=== PATIENT | female | born 1960 | race Caucasian/White ===

== ENCOUNTER 2018-01-12 21:25 | Emergency (ER) | payer OTHER ==
[2018-01-12] MEDS ORDERED: MECLIZINE HCL 25 MG TABLET (FP) PO ONE (21:30)
[2018-01-12] MEDS ORDERED: ONDANSETRON 4 MG/2 ML VIAL IVPUSH ONE (21:32)
--- NOTE | 2018-01-12 21:38 | PDOC ---
Attending Attestation - HPI HPI: 01/12/18 22:16 The patient is a 57 year old female, with a significant past medical history of PE (x5) bipolar disorder and head/neck masses, who presents to the emergency department with, vertigo and worsening head/neck pain. As per patient, she has follow up next week for her masses, however, does endorse missing multiple appointments with her surgeon. Allergies: Aspirin, IV and Oral dye - Physicial Exam PE: 01/12/18 22:25 GENERAL: Awake, alert, and fully oriented, in no acute distress HEAD: No signs of trauma EYES: PERRLA, EOMI, sclera anicteric, conjunctiva clear +ENT: Geographic tongue. Auricles normal inspection, hearing grossly normal, nares patent, oropharynx clear without exudates. Moist mucosa +NECK: 3 enlarged lymph nodes at angle of the right jaw, 2 inches inferior, and 2 inches inferior at the clavicle. LUNGS: Breath sounds equal, clear to auscultation bilaterally. No wheezes, and no crackles HEART: Regular rate and rhythm, normal S1 and S2, no murmurs, rubs or gallops ABDOMEN: Soft, nontender, normoactive bowel sounds. No guarding, no rebound. No masses EXTREMITIES: Normal range of motion, no edema. No clubbing or cyanosis. No cords, erythema, or tenderness NEUROLOGICAL: Cranial nerves II through XII grossly intact. Normal speech, normal gait SKIN: Warm, Dry, normal turgor, no rashes or lesions noted. <Melissa Juarez - Last Filed: 01/12/18 22:25> - Resident Resident Name: Terrell Howell - ED Attending Attestation I have performed the following: I have examined & evaluated the patient, The case was reviewed & discussed with the resident, I agree w/resident's findings & plan - Medical Decision Making 01/12/18 21:51 Pt with worsening head and neck pain as well as new vertiginous symptoms. She has had a hx of multiple biopsies of the nodes/masses done at [facility] with Dr. Mac. Pt admits that she missed a bunch of appointments with Dr. Mac, due to the fact that she is homeless after her mom's . She has had a hard time getting to appts. She tells me that she is also bipolar. SHe tried medical marijuana and it didn't help. Pt has a hx of PE's states that she is "on xarelto for life" She never used OCPs and she was a heavy smoker. Pt also had biopsies of her tongue, left side of tongue biopsies were normal, right side of tongue biospsies were abnormal; her docs are worried about tongue malignancies. 01/12/18 22:15 Pt's CBC is completely normal 01/12/18 23:09 Chem is normal. Alk phos is minimally elevated. 01/12/18 23:26 Patient Name: ROSIE JULIAN THIS IS A PRELIMINARY REPORT FROM [facility] DATE OF SERVICE: 2018-01-12 22:55:20 IMAGES: 182 EXAM: HEAD CT WITHOUT CONTRAST HISTORY: Rule out new lesion COMPARISON: None. FINDINGS: The ventricular system is midline and nondilated. The sulcal pattern is normal for the patient's age. There is no bleed, mass, extra-axial fluid collection or mass effect. No skull fracture or skull lesion is identified. The visualized paranasal sinuses and mastoid air cells are clear. IMPRESSION: No evidence of pathology 01/12/18 23:26 Pt will be discharged. She has normal labs normal CT and she will be given meclizine for dizziness and tylenol for pain and she will follow with her docs at [facility]. <Lucy Merino - Last Filed: 01/12/18 23:27> Attestations - Attestations 01/12/18 22:16 Documentation prepared by Melissa Juarez, acting as medical pathologist for Lucy Merino MD. <Melissa Juarez - Last Filed: 01/12/18 22:25>
[2018-01-12] MEDS ORDERED: MECLIZINE HCL 25 MG TABLET (FP) ONE (21:47)
[2018-01-12] MEDS ORDERED: ONDANSETRON 4 MG/2 ML VIAL ONE (21:47)
--- NOTE | 2018-01-12 21:59 | PDOC ---
History of Present Illness - General Chief Complaint: Lightheaded Stated Complaint: NECK PAIN, DIZZY Time Seen by Provider: 01/12/18 21:28 History Source: Patient Exam Limitations: No Limitations - History of Present Illness Initial Comments: 01/12/18 22:01 57F with pmh of PE and COPD presenting to the ER for right jaw and neck pain as well as vertigo for the past week. Patient has been seen by ENT Dr. Mac from [facility] for possibly neoplatic processes in the patient's neck. A MRI done in August of this year showed that the patient had a [id number] on the tip of the right parotid gland, a enlarged lymph node between the right SCM muscle and parotid gland as well as enhancing lymph nodes in the cervical neck. Patient's neck is extremely tender to the right. Has an appointment with her ENT in 8 days. Claims to have missed quite a few appointments. Past History - Past Medical History Allergies/Adverse Reactions: Allergies Allergy/AdvReac Type Severity Reaction Status Date / Time aspirin Allergy Verified 10/18/17 10:03 Iodinated Contrast- Oral and Allergy Verified 10/18/17 10:03 IV Dye Home Medications: Ambulatory Orders Clonazepam 1 mg PO DAILY 10/18/17 Gabapentin 300 mg PO BID 10/18/17 Lamotrigine [Lamictal -] 100 mg PO BID 10/18/17 Venlafaxine HCl ER [Effexor Xr -] 150 mg PO DAILY 10/18/17 Meclizine HCl [Antivert -] 25 mg PO TID #21 tablet 01/12/18 Cardiac Disorders: Yes (P.E) COPD: Yes HTN: Yes Psychiatric Problems: Yes (bipolar, depression, bipolar) - Suicide/Smoking/Psychosocial Hx Smoking History: Current every day smoker Have you smoked in the past 12 months: No Number of Cigarettes Smoked Daily: 10 'Breaking Loose' booklet given: 10/18/17 Hx Alcohol Use: No Drug/Substance Use Hx: No Substance Use Type: None Review of Systems - Review of Systems Able to Perform ROS?: Yes Is the patient limited Polish proficient: No Constitutional: No: Symptoms Reported HEENTM: Yes: See HPI Respiratory: No: Symptoms reported Cardiac (ROS): No: Symptoms Reported ABD/GI: No: Symptoms Reported : No: Symptoms Reported Musculoskeletal: No: Symptoms Reported Integumentary: No: Symptoms Reported Neurological: Yes: Dizziness *Physical Exam - Physical Exam General Appearance: Yes: Nourished, Appropriately Dressed, Moderate Distress HEENT: positive: EOMI, FAITH, Normal ENT Inspection, Other Neck: positive: Tender (right), Rigid. negative: Carotid bruit Respiratory/Chest: positive: Lungs Clear, Normal Breath Sounds. negative: Chest Tender, Respiratory Distress Cardiovascular: positive: Regular Rhythm, Regular Rate, S1, S2 Gastrointestinal/Abdominal: positive: Normal Bowel Sounds, Flat, Soft. negative : Tender Musculoskeletal: positive: Normal Inspection. negative: CVA Tenderness Extremity: positive: Normal Capillary Refill, Normal Inspection, Normal Range of Motion Neurologic: positive: Fully Oriented, Alert, Normal Mood/Affect, Normal Response ED Treatment Course - LABORATORY CBC & Chemistry Diagram: 01/12/18 21:54 01/12/18 21:54 - RADIOLOGY Radiology Studies Ordered: Category Date Time Status HEAD CT WITHOUT CONTRAST [CT] Stat CT Scan 01/12/18 21:44 Ordered CHEST PA & LAT [RAD] Stat Radiology 01/12/18 21:32 Ordered Medical Decision Making - Medical Decision Making 01/12/18 22:30 Enlargement of preexisting neoplastic lesions possibly impacting vertebral supply causing vertigo? Basic labs ordered, cxr, ekg, meclizine and pain control. Spoke to ENT environmental web crawler for Dr. Mac who recommended treating the vertigo and sending the patient home as it is unlikely that any adverse event might occur during the week Unfortunately patient is allergic to iodine contrast. We will only do a dry CT to search for any sign of new pathology. 01/12/18 23:[address] Will discharge with meclizine. *DC/Admit/Observation/Transfer Diagnosis at time of Disposition: Vertigo - Discharge Dispostion Disposition: HOME Decision to Admit order: No - Prescriptions Prescriptions: Meclizine HCl [Antivert -] 25 mg PO TID #21 tablet - Referrals - Patient Instructions Printed Discharge Instructions: DI for Vertigo Additional Instructions: Please follow up with your ENT appointment next week with Dr. Morejon. supervisor mail carriers your prescription medication for your vertigo. Come back to the ER for any new, worsening or concerning symptoms. - Post Discharge Activity
[2018-01-12 22:03] VITALS: BP 133/94; PULSE 76; TEMP 98.1; BMI 26.9
[2018-01-12 22:04] LABS: EOS % 1.7 % (0-4.5); HEMATOCRIT 39.6 % (32.4-45.2); HEMOGLOBIN 13.6 GM/dL (10.7-15.3); LYMPH % 39.4 % (8-40); MCH 30.6 pg (25.7-33.7); MCHC 34.5 g/dl (32.0-36.0); MEAN CELL VOLUME 88.8 fl (80-96); MEAN PLT VOLUME 7.4 fl (7.5-11.1); MONO % 6.1 % (3.8-10.2); NEUT % 51.8 % (42.8-82.8); PLATELET COUNT 360 K/MM3 (134-434); RBC 4.46 M/mm3 (3.60-5.2); RDW 13.1 % (11.6-15.6); WHITE BLOOD COUNT 8.8 K/mm3 (4.0-10.0)
[2018-01-12 22:39] LABS: ALBUMIN 3.9 g/dl (3.4-5.0); ALK PHOS 128 U/L (45-117); ANION GAP 7 MMOL/L (8-16); BILIRUBIN,TOTAL 0.2 mg/dL (0.2-1); BLOOD UREA NITROGEN 15 mg/dL (7-18); CALCIUM 9.3 mg/dL (8.5-10.1); CHLORIDE 104 mmol/L (98-107); CO2 30 mmol/L (21-32); CREATININE 0.8 mg/dL (0.55-1.3); GLUCOSE,RANDOM 101 mg/dL (74-106); POTASSIUM 4.1 mmol/L (3.5-5.1); SGOT/AST 20 U/L (15-37); SGPT/ALT 21 U/L (13-61); SODIUM 140 mmol/L (136-145); TOT PROT 7.4 g/dl (6.4-8.2)
[2018-01-12] MEDS ORDERED: ACETAMINOPHEN 325 MG TABLET (FP) PO ONE (23:26)
[2018-01-12] MEDS ORDERED: ACETAMINOPHEN 325 MG TABLET (FP) ONE (23:57)
== END 2018-01-13 00:17 | disposition home or self-care (01) ==
LOC: JER 21:25
PROC: 3E033GC Introduction of Other Therapeutic Substance into Peripheral Vein, Percutaneous Approach (ICD-10-PCS; principal; 2018-01-12)
DX: R42 Dizziness and giddiness (principal); R59.0 Localized enlarged lymph nodes; I10 Essential (primary) hypertension; J44.9 Chronic obstructive pulmonary disease, unspecified; F31.9 Bipolar disorder, unspecified; F17.210 Nicotine dependence, cigarettes, uncomplicated; Z86.711 Personal history of pulmonary embolism
CPT/HCPCS: 36415; 70450-TC; 71046-TC-FY; 80053; 85025; 96374; 99283-25